=== PATIENT | female | born 1960 | race Two or more races ===

== ENCOUNTER → 2017-06-05 | Outpatient (CLI) | payer OTHER ==
[~2017-06-05] MED LIST: ASPI325T17 PO; BIOT25005 PO; CALC1CAP8 PO; CHOL10003 PO; GLIP-142 PO; INSU100V8 SQ; LEVO125T5 PO; LINA5TAB PO; LOSA1TAB16 PO; METF500T9 PO; MULT-516 PO; NAPR220T77 PO; OMEG500C PO; REGADENOSON 0.4 MG/5 ML SYRINGE ONE; SIMV40TA3 PO
== END | disposition home or self-care (01) ==
LOC: CFH 12:01
PROVIDERS: ATTEND Family Medicine
DX: R06.02 Shortness of breath (principal)
CPT/HCPCS: 78452; 93017; A9502; J2785

== ENCOUNTER → 2017-07-27 | Outpatient (CLI) | payer OTHER ==
[~2017-07-27] MED LIST changes: -REGADENOSON 0.4 MG/5 ML SYRINGE ONE
== END | disposition home or self-care (01) ==
LOC: CFH 12:19
PROVIDERS: ATTEND Specialist
DX: Z12.31 Encounter for screening mammogram for malignant neoplasm of breast (principal)
CPT/HCPCS: 77063; G0202

== ENCOUNTER → 2018-07-30 | Outpatient (CLI) | payer OTHER ==
[~2018-07-30] MED LIST changes: -LOSA1TAB16 PO; +LOSA1TAB19 PO
== END | disposition home or self-care (01) ==
LOC: CFH 11:54
PROVIDERS: ATTEND Specialist
DX: Z12.31 Encounter for screening mammogram for malignant neoplasm of breast (principal)
CPT/HCPCS: 77063; 77067

== ENCOUNTER 2021-04-02 17:42 | Emergency (ER) | payer MEDICAID ==
[~2021-04-02] VITALS: Ht 165.1 cm; Wt 97.8 kg
[~2021-04-02 17:42] MED LIST changes: +METF-754 PO; -METF500T9 PO; +SIMV40TA20 PO; -SIMV40TA3 PO
--- NOTE | 2021-04-02 19:26 | NUR ---
PT TO ROOM FROM LOBBY
[2021-04-02] MEDS ORDERED: CLINDAMYCIN 300 MG CAPSULE PO ONE (20:00)
[2021-04-02] MEDS ORDERED: MUPIROCIN OINT 2%, 1 GM APPL. TP ONE (20:00)
--- NOTE | 2021-04-02 20:02 | NUR ---
PT RESTING COMFORTABLY IN [facility] AND DENIES ANY NEEDS AT THIS TIME. MEDS ORDERED FROM PHARMACY PER DEC.
[2021-04-02] MEDS ORDERED: CLINDAMYCIN 300 MG CAPSULE ONE (20:23)
[2021-04-02] MEDS ORDERED: MUPIROCIN OINT 2%, 15GM TP ONE (20:30)
--- NOTE | 2021-04-02 20:34 | NUR ---
PT MEDICATED PER MAR AT THIS TIME. PT D/C WITH D/C SUMMARY AND SCRIPTS. ALL QUESTIONS ANSWERED. PT AMBULATES TO REGISTRATION DESK WITH [facility] HOME AND DENIES ANY OTHER NEEDS PERTAINING TO THIS VISIT. PT VERBALIZES UNDERSTANDING OF ABX/OINTMENT USE.
[2021-04-02 20:35] VITALS: BP 141/75
== END 2021-04-02 20:47 | disposition home or self-care (01) ==
LOC: ED 20:00
DX: L03.316 Cellulitis of umbilicus (principal); I10 Essential (primary) hypertension; E11.9 Type 2 diabetes mellitus without complications; E78.5 Hyperlipidemia, unspecified
CPT/HCPCS: 82962; 99284

== ENCOUNTER 2021-04-04 23:04 | Emergency (ER) | payer MEDICAID ==
[~2021-04-04] VITALS: Ht 165.1 cm; Wt 97.0 kg
[2021-04-04] MEDS ORDERED: SODIUM CHLORIDE FLUSH 10ML SYR IVF ONE (23:30)
[2021-04-05 00:03] LABS: BASOPHILS % (AUTO) 1 % (0-1); EOSINOPHILS % (AUTO) 1 % (1-7); LYMPHOCYTES % (AUTO) 46 % (22-44); MEAN PLATELET VOLUME 9.3 fL (7.4-10.4); MONOCYTES % (AUTO) 8 % (2-9); NEUTROPHILS % (AUTO) 45 % (42-75); PLATELET COUNT 241 x10^3/uL (130-400); RED BLOOD COUNT 5.39 x10^6/uL (3.82-5.3); RED CELL DISTRIBUTION WIDTH 13.7 % (9.6-15.2)
[2021-04-05 00:10] LABS: ALANINE AMINOTRANSFERASE 30 U/L (12-78); ALBUMIN 3.6 g/dL (3.4-5.0); ANION GAP 6 mmol/L (5-15); CALCIUM 9.6 mg/dL (8.5-10.1); CHLORIDE 106 mmol/L (98-107); CREATININE 0.89 mg/dL (0.55-1.02)
[2021-04-05 00:12] LABS: ALKALINE PHOSPHATASE 93 U/L (45-117); BILIRUBIN,TOTAL 0.5 mg/dL (0.2-1.0); TOTAL PROTEIN 8.3 g/dL (6.4-8.2)
[2021-04-05 00:26] LABS: <PLATELET ESTIMATE> ADEQUATE; ANISOCYTOSIS 1+; LARGE PLATELETS 1+
[2021-04-05 00:27] LABS: PMNS WITH VACUOLES 1+
[2021-04-05 02:46] LABS: MICROSCOPIC NOT IND
[2021-04-05] MEDS ORDERED: OMNIPAQUE 350 MG/ML, 100ML BOTTLE ONE (03:01)
[2021-04-05 05:17] VITALS: BP 119/69
== END 2021-04-05 05:24 | disposition home or self-care (01) ==
LOC: ED 04-05 05:18
DX: L03.316 Cellulitis of umbilicus (principal); E11.9 Type 2 diabetes mellitus without complications; E78.5 Hyperlipidemia, unspecified; I10 Essential (primary) hypertension; Z86.39 Personal history of other endocrine, nutritional and metabolic disease
CPT/HCPCS: 36415; 74177; 80053; 81003; 85025; 99285; Q9967